=== PATIENT | male | born 1975 | race Caucasian/White ===

== ENCOUNTER 2024-03-12 17:48 | Emergency (ER) | payer OTHER ==
[~2024-03-12] VITALS: Ht 167.6 cm; Wt 100.0 kg
[2024-03-12 17:50] VITALS: O2SAT 94
[2024-03-12 18:15] VITALS: TEMP 98.4
[2024-03-12] MEDS: CYCLOBENZAPRINE 10MG TABLET PO ONE (18:15)
[2024-03-12] MEDS: ACETAMINOPHEN 325MG TABLET PO ONE (18:15)
[2024-03-12] MEDS: ONDANSETRON 4MG ODT PO ONE (18:56)
[2024-03-12] MEDS ORDERED: LIDO700A15 TP (20:25)
[2024-03-12] MEDS ORDERED: NAPR220C61 MT (20:25)
[2024-03-12] MEDS ORDERED: CYCL10TA21 MT (20:25)
[2024-03-12 21:08] VITALS: BP 190/98; PULSE 78; RESP 20
== END 2024-03-12 21:09 | disposition home or self-care (01) ==
LOC: ER 17:48
DX: S13.4XXA Sprain of ligaments of cervical spine, initial encounter (principal); G89.11 Acute pain due to trauma; V98.8XXA Other specified transport accidents, initial encounter; Y93.89 Activity, other specified; Y92.89 Other specified places as the place of occurrence of the external cause; Y99.8 Other external cause status
CPT/HCPCS: 99284; 70450; 73560; 72125; Q0162